=== PATIENT | female | born 1950 | race Caucasian/White ===

== ENCOUNTER 2018-06-16 18:54 | Observation (INO) ==
--- NOTE | 2018-06-16 20:18 | ED ---
HPI General Chief Complaint: Chest Pain Stated Complaint: Chest tightness/SOB Time Seen by Provider: 06/16/18 19:34 Source: patient Mode of arrival: ambulatory Limitations: no limitations History of Present Illness HPI narrative: 67-year-old female presents to the emergency department by private transportation for complaint of chest pain and shortness of breath since Tuesday. Patient states she underwent cataract surgery on Tuesday had anesthesia and felt fatigue since that time also is noted pain with taking deep breath since Tuesday. Patient complains of feeling like something is sitting on her chest since Tuesday. No referred neck jaw back shoulder arm abdominal pain. Patient had no nausea associated with this however was evaluated by GI approximately 2 weeks ago for frequent nausea and is scheduled for gastric emptying study. Patient also underwent surgery on her ears in April. No report of swelling of the upper extremities or lower extremities were no clotting disorder. Patient does have history of hypertension hypertriglyceridemia and diabetes. Blood sugars have reportedly been well controlled. No reported fever chills. Patient here says concerned because of the increased fatigue and feeling like she needs to take a deep breath. No hemoptysis no productive cough. No history of reactive airways disease although states stopped smoking in 1986 and had had bronchitis prior to that. 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 MD complaint: chest pain STEMI Alert: No Onset (ago): day(s) Duration: intermittent Onset: during rest, during exertion and awoke with symptoms Pain location: substernal Severity: moderate Severity scale (1-10): 4 Quality: heaviness Pain radiation: none Relieving factors: nothing Exacerbating factors: nothing Context: recent surgery and other Associated symptoms: dyspnea and other (Fatigue) Treatments prior to arrival chest pain: other (Ibuprofen without relief) Related Data On Oral Contraceptives: No Home Medications Medication Instructions Recorded Confirmed glimepiride 2 mg PO QAM 06/16/18 06/16/18 metformin 1,000 mg PO BID 06/16/18 06/16/18 miglitol [Glyset] 25 mg PO TID 06/16/18 06/16/18 omeprazole 20 mg PO DAILY 06/16/18 06/16/18 Allergies Allergy/AdvReac Type Severity Reaction Status Date / Time azithromycin Allergy Severe Hives Unverified 06/16/18 19:30 cephalexin Allergy Severe Hives Unverified 06/16/18 19:30 penicillin G Allergy Severe Hives Unverified 06/16/18 19:30 lansoprazole AdvReac Mild Itching Unverified 05/10/17 21:00 Penicillin,KEFLEX, ZITHROMAX Allergy Mild Anaphylaxis Uncoded 06/16/18 19:30 Review of Systems ROS: all other systems reviewed are negative PMFSH Medical History Medical History Diabetes (Acute) Surgical History Surgical History Hx of cataract surgery (Acute) Social History Social History Substance History: No History of Abuse Second Hand Smoke Exposure: No Smoking Status: Never smoker How Often Do You Have a Drink Containing Alcohol: Never Recent Travel in [facility] within the Last 8 Weeks: No Recent Out of Country Travel within the Last 8 Weeks: No Immunization History Tetanus Immunization: >5 Years Hx Influenza Vaccine This Season: No Exam Narrative Exam Narrative: GENERAL: Well-nourished, well-developed patient. No apparent distress no respiratory distress animated laughing during exam appears to have no apparent discomfort or dyspnea. SKIN: Focused skin assessment warm/dry. HEAD: Normocephalic. EYES: No scleral icterus. No injection or drainage. NECK: Supple, trachea midline. No JVD or lymphadenopathy. CARDIOVASCULAR: Regular rate and rhythm without murmurs, gallops, or rubs. RESPIRATORY: Breath sounds equal bilaterally. No accessory muscle use. GASTROINTESTINAL: Abdomen soft, non-tender, nondistended. MUSCULOSKELETAL: No cyanosis, or edema. BACK: Nontender without obvious deformity. No CVA tenderness. Course Initial Documented Vital Signs Temperature 97.7 F 06/16/18 19:12 Pulse Rate 65 06/16/18 19:12 Respiratory Rate 18 06/16/18 19:12 Blood Pressure 154/70 H 06/16/18 19:12 Pulse Oximetry 98 06/16/18 19:12 Last Documented Vital Signs Temperature 97.7 F 06/16/18 19:12 Pulse Rate 65 06/16/18 23:36 Respiratory Rate 20 06/16/18 23:36 Blood Pressure 121/59 L 06/16/18 23:36 Pulse Oximetry 93 L 06/16/18 23:36 Medical Decision Making MDM Narrative Medical decision making narrative: 67-year-old female presents to the emergency department for evaluation of chest discomfort heaviness and shortness of breath was feeling of inability to take complete breath since Tuesday. Patient also complains of increasing fatigue and frequent drowsiness sleeping more often than usual. Currently patient rates discomfort for over 10 in intensity with or without activity deep breathing or at rest. Patient placed on security monitor with continuous pulse oximetry IV access obtained specimens collected and sent for resulting EKG performed sinus rhythm with no acute injury pattern or ectopy noted At 10:30 PM patient has no chest pain no shortness of breath patient states the reason she actually came in is that she was having chest pain shortness of breath but she was also feeling funny in the left side of her head and left side of her face and left left-sided vision. Patient had just undergone cataract surgery on Tuesday of the left eye. Patient states that she is more focused on her breathing and shortness of breath when she came into did not mention it but now that she knows everything is fine she just wants to know may be what is wrong and decided that she should by now mentioned that she was having some dizziness and feeling funny and left side of her head and face. No altered mentation no loss of vision no double vision no partial loss of vision no balance disturbance no facial droop no change in speech no difficulty swallowing no neck pain no arm or leg numbness tingling or weakness and no ataxia of gait spouse is at bedside and states he has not noticed any change in her mid facial droop no change in her speech no change in her behavior and has not noticed her to have any obvious functional or behavioral changes and no weakness. Plan is to admit patient to chest pain center per protocol however in view of these new symptoms will obtain CT brain noncontrast NIH SS at this time is 0. Patient reports that something just is not right is aware CT brain noncontrast reveals no acute abnormality chest pressure that she describes has resolved but risk factors include hypertension target hypertriglyceridemia and diabetes patient will be admitted to chest pain center per protocol. Medical Screen Exam Complete: Yes Emergency Medical Condition: Yes Differential Diagnosis Differential Diagnosis: Chest pain, atypical chest pain, ACS, MS, pleurisy, costochondritis, PE, pneumonia, anemia, CHF, electrolyte disturbance, adverse medication reaction, arrhythmia, uncontrolled diabetes Medical Records Medical records reviewed: Yes I reviewed the patient's medical records. 2006 admission for chest pain Lab Data Lab results reviewed: Yes I reviewed the patient's lab results. Result diagrams: 06/16/18 20:00 06/16/18 20:00 Lab Results 06/16/18 06/16/18 06/16/18 Range/Units 20:00 20:00 20:00 WBC 5.4 (4.0-11.0) th/mm3 RBC 4.45 (4.00-5.30) mil/mm3 Hgb 14.0 (11.6-15.3) gm/dL Hct 42.5 (35.0-46.0) % MCV 95.5 (80.0-100.0) fL MCH 31.5 (27.0-34.0) pg MCHC 33.0 (32.0-36.0) % RDW 13.1 (11.6-17.2) % Plt Count 270 (150-450) th/mm3 MPV 7.9 (7.0-11.0) fL Neut % (Auto) 49.0 (16.0-70.0) % Lymph % (Auto) 42.6 (9.0-44.0) % Mora % (Auto) 6.7 (0.0-8.0) % Eos % (Auto) 1.1 (0.0-4.0) % Baso % (Auto) 0.6 (0.0-2.0) % Neut # (Auto) 2.6 (1.8-7.7) th/mm3 Lymph # (Auto) 2.3 (1.0-4.8) th/mm3 Mora # (Auto) 0.4 (0.0-0.9) th/mm3 Eos # (Auto) 0.1 (0.0-0.4) th/mm3 Baso # (Auto) 0.0 (0.0-0.2) th/mm3 WBC Differential . Differential Comment Auto diff final PT (9.8-11.6) sec INR Ratio APTT (24.3-30.1) sec D-Dimer Quant (PE/DVT) (0.00-0.50) mg/L FEU Sodium 143 (136-145) meq/L Potassium 3.7 (3.5-5.1) meq/L Chloride 105 (98-107) meq/L Carbon Dioxide 29.7 (21.0-32.0) meq/L Anion Gap 8 (5-15) meq/L BUN 10 (7-18) mg/dL Creatinine 0.70 (0.50-1.00) mg/dL Estimated GFR 84 L (>89) mL/min Random Glucose 89 (74-106) mg/dL Calcium 8.6 (8.5-10.1) mg/dL Magnesium 1.6 (1.5-2.5) mg/dL Total Bilirubin 0.2 (0.2-1.0) mg/dL AST 16 (15-37) U/L ALT 32 (10-53) U/L Alkaline Phosphatase 92 (45-117) U/L Total Creatine Kinase 83 (26-192) U/L Troponin I Less than 0.02 L (0.02-0.05) ng/mL B-Natriuretic Peptide 17 (0-100) pg/mL Total Protein 6.7 (6.4-8.2) g/dL Albumin 3.6 (3.4-5.0) g/dL Urine Color (Yellw/Straw) Urine Clarity (Clear) Urine pH (5.0-8.5) Ur Specific [place] (1.002-1.035) Urine Protein (Neg-Trace) mg/dL Urine Glucose (UA) (Negative) mg/dL Urine Ketones (Negative) mg/dL Urine Occult Blood (Negative) Urine Nitrate (Negative) Urine Bilirubin (Negative) Urine Urobilinogen (Less than 2) mg/dL Ur Leukocyte Esterase (Negative) Micro UA Comment Ur Microscopic Review Urine Culture Comments 06/16/18 06/16/18 06/16/18 Range/Units 20:00 20:00 20:20 WBC (4.0-11.0) th/mm3 RBC (4.00-5.30) mil/mm3 Hgb (11.6-15.3) gm/dL Hct (35.0-46.0) % MCV (80.0-100.0) fL MCH (27.0-34.0) pg MCHC (32.0-36.0) % RDW (11.6-17.2) % Plt Count (150-450) th/mm3 MPV (7.0-11.0) fL Neut % (Auto) (16.0-70.0) % Lymph % (Auto) (9.0-44.0) % Mora % (Auto) (0.0-8.0) % Eos % (Auto) (0.0-4.0) % Baso % (Auto) (0.0-2.0) % Neut # (Auto) (1.8-7.7) th/mm3 Lymph # (Auto) (1.0-4.8) th/mm3 Mora # (Auto) (0.0-0.9) th/mm3 Eos # (Auto) (0.0-0.4) th/mm3 Baso # (Auto) (0.0-0.2) th/mm3 WBC Differential Differential Comment PT 9.9 (9.8-11.6) sec INR 1.0 Ratio APTT 24.3 (24.3-30.1) sec D-Dimer Quant (PE/DVT) 0.20 (0.00-0.50) mg/L FEU Sodium (136-145) meq/L Potassium (3.5-5.1) meq/L Chloride (98-107) meq/L Carbon Dioxide (21.0-32.0) meq/L Anion Gap (5-15) meq/L BUN (7-18) mg/dL Creatinine (0.50-1.00) mg/dL Estimated GFR (>89) mL/min Random Glucose (74-106) mg/dL Calcium (8.5-10.1) mg/dL Magnesium (1.5-2.5) mg/dL Total Bilirubin (0.2-1.0) mg/dL AST (15-37) U/L ALT (10-53) U/L Alkaline Phosphatase (45-117) U/L Total Creatine Kinase (26-192) U/L Troponin I (0.02-0.05) ng/mL B-Natriuretic Peptide (0-100) pg/mL Total Protein (6.4-8.2) g/dL Albumin (3.4-5.0) g/dL Urine Color Yellow (Yellw/Straw) Urine Clarity Clear (Clear) Urine pH 6.0 (5.0-8.5) Ur Specific [place] 1.013 (1.002-1.035) Urine Protein Negative (Neg-Trace) mg/dL Urine Glucose (UA) Negative (Negative) mg/dL Urine Ketones Negative (Negative) mg/dL Urine Occult Blood Negative (Negative) Urine Nitrate Negative (Negative) Urine Bilirubin Negative (Negative) Urine Urobilinogen Less than 2 (Less than 2) mg/dL Ur Leukocyte Esterase Negative (Negative) Micro UA Comment Culture not ind Ur Microscopic Review Not Reportable Urine Culture Comments Culture not ind 06/16/18 Range/Units 23:23 WBC (4.0-11.0) th/mm3 RBC (4.00-5.30) mil/mm3 Hgb (11.6-15.3) gm/dL Hct (35.0-46.0) % MCV (80.0-100.0) fL MCH (27.0-34.0) pg MCHC (32.0-36.0) % RDW (11.6-17.2) % Plt Count (150-450) th/mm3 MPV (7.0-11.0) fL Neut % (Auto) (16.0-70.0) % Lymph % (Auto) (9.0-44.0) % Mora % (Auto) (0.0-8.0) % Eos % (Auto) (0.0-4.0) % Baso % (Auto) (0.0-2.0) % Neut # (Auto) (1.8-7.7) th/mm3 Lymph # (Auto) (1.0-4.8) th/mm3 Mora # (Auto) (0.0-0.9) th/mm3 Eos # (Auto) (0.0-0.4) th/mm3 Baso # (Auto) (0.0-0.2) th/mm3 WBC Differential Differential Comment PT (9.8-11.6) sec INR Ratio APTT (24.3-30.1) sec D-Dimer Quant (PE/DVT) (0.00-0.50) mg/L FEU Sodium (136-145) meq/L Potassium (3.5-5.1) meq/L Chloride (98-107) meq/L Carbon Dioxide (21.0-32.0) meq/L Anion Gap (5-15) meq/L BUN (7-18) mg/dL Creatinine (0.50-1.00) mg/dL Estimated GFR (>89) mL/min Random Glucose (74-106) mg/dL Calcium (8.5-10.1) mg/dL Magnesium (1.5-2.5) mg/dL Total Bilirubin (0.2-1.0) mg/dL AST (15-37) U/L ALT (10-53) U/L Alkaline Phosphatase (45-117) U/L Total Creatine Kinase 59 (26-192) U/L Troponin I Less than 0.02 L (0.02-0.05) ng/mL B-Natriuretic Peptide (0-100) pg/mL Total Protein (6.4-8.2) g/dL Albumin (3.4-5.0) g/dL Urine Color (Yellw/Straw) Urine Clarity (Clear) Urine pH (5.0-8.5) Ur Specific [place] (1.002-1.035) Urine Protein (Neg-Trace) mg/dL Urine Glucose (UA) (Negative) mg/dL Urine Ketones (Negative) mg/dL Urine Occult Blood (Negative) Urine Nitrate (Negative) Urine Bilirubin (Negative) Urine Urobilinogen (Less than 2) mg/dL Ur Leukocyte Esterase (Negative) Micro UA Comment Ur Microscopic Review Urine Culture Comments Imaging Data Radiologist's impression: Chest X-Ray 06/16/18 19:34 CONCLUSION: No acute findings. Head CT 06/16/18 22:31 CONCLUSION: 1. No acute intracranial abnormality. 2. Apparent previous left mastoid surgery. . ECG Data EKG Prior to Arrival: No Attestation: I personally reviewed and interpreted this ECG as follows: Prior ECG tracings: not available for review Interpretation: EKG: Normal sinus rhythm rate [address] elevation injury pattern or ectopy noted normal axis and interval Discharge Plan Discharge Disposition Patient Disposition: 30 Still Patient Discharge Condition Condition: Stable Discharge Details Diagnosis: Chest pain Physicians Team ED Provider: Kirsty Bob Primary Care Provider: UNKNOWN, Rxs /Orders / Referrals /Forms Prescriptions: No Action miglitol [Glyset] 25 mg Tablet 25 mg PO TID RF: 0 glimepiride 2 mg Tablet 2 mg PO QAM RF: 0 omeprazole 20 mg Capsule,Delayed Release(Dr/Ec) 20 mg PO DAILY RF: 0 metformin 1,000 mg Tablet Extended Release 24hr 1,000 mg PO BID RF: 0 Discharge Instructions Patient Printed Instructions: Chest Pain (ED) Status ED Status: With Doctor
[2018-06-16 20:26] LABS: Baso % (Auto) 0.6 % (0.0-2.0); Eos # (Auto) 0.1 th/mm3 (0.0-0.4); Eos % (Auto) 1.1 % (0.0-4.0); Hematocrit 42.5 % (35.0-46.0); Lymph # (Auto) 2.3 th/mm3 (1.0-4.8); Lymph % (Auto) 42.6 % (9.0-44.0); Mean Corpuscular Hemoglobin 31.5 pg (27.0-34.0); Mean Corpuscular Volume 95.5 fL (80.0-100.0); Mean Platelet Volume 7.9 fL (7.0-11.0); Mono # (Auto) 0.4 th/mm3 (0.0-0.9); Mono % (Auto) 6.7 % (0.0-8.0); Neut # (Auto) 2.6 th/mm3 (1.8-7.7); Platelet Count 270 th/mm3 (150-450); Red Blood Count 4.45 mil/mm3 (4.00-5.30); Red Cell Distribution Width 13.1 % (11.6-17.2); White Blood Count 5.4 th/mm3 (4.0-11.0)
[2018-06-16 20:41] LABS: Activated Partial Thrombo Time 24.3 sec (24.3-30.1); Prothrombin Time 9.9 sec (9.8-11.6)
--- NOTE | 2018-06-16 20:42 | XR ---
EXAM DATE: 06/16/2018 8:20 PM EDT AGE/SEX: 67 years / Female INDICATIONS: Chest pain. CLINICAL DATA: This is the patient's initial encounter. Patient reports that signs and symptoms have been present for 1 day and indicates a pain score of 2/10. MEDICAL/SURGICAL HISTORY: None. None. COMPARISON: No prior exams available for comparison. FINDINGS: A single AP view of the chest demonstrates the lungs to be symmetrically aerated without evidence of mass, infiltrate or effusion. The cardiomediastinal contours are unremarkable. Osseous structures a re intact. CONCLUSION: No acute findings. Electronically signed by: Milo Zhang MD 06/16/2018 8:41 PM EDT
[2018-06-16 20:43] LABS: Bilirubin,Urine Negative (Negative); Clarity,Urine Clear (Clear); Color,Urine Yellow (Yellw/Straw); Glucose,Urine (UA) Negative (Negative); Leukocyte Esterase,Urine Negative (Negative); Nitrite,Urine Negative (Negative); Specific Gravity,Urine 1.013 (1.002-1.035)
[2018-06-16 20:57] LABS: Albumin 3.6 g/dL (3.4-5.0); Anion Gap 8 meq/L (5-15); Aspartate Aminotransferase 16 U/L (15-37); Blood Urea Nitrogen 10 mg/dL (7-18); Calcium 8.6 mg/dL (8.5-10.1); Carbon Dioxide 29.7 meq/L (21.0-32.0); Chloride 105 meq/L (98-107); Glomerular Filtration Rate 84 mL/min (>89); Glucose,Random 89 mg/dL (74-106); Magnesium 1.6 mg/dL (1.5-2.5); Potassium 3.7 meq/L (3.5-5.1); Sodium 143 meq/L (136-145)
[2018-06-16 21:02] LABS: Alanine Aminotransferase 32 U/L (10-53); Alkaline Phosphatase 92 U/L (45-117); Total Protein 6.7 g/dL (6.4-8.2)
[2018-06-16 21:04] LABS: Creatine Kinase 83 U/L (26-192)
--- NOTE | 2018-06-16 23:47 | CT ---
EXAM DATE: 06/16/2018 11:34 PM EDT AGE/SEX: 67 years / Female INDICATIONS: Cephalgia, generalized weakness since cataract surgery on Tuesday. CLINICAL DATA: This is the patient's initial encounter. Patient reports that signs and symptoms have been present for 4 - 6 days and indicates a pain score of 4/10. MEDICAL/SURGICAL HISTORY: Diabetes. . Cataract surgery. RADIATION DOSE: 56.35 CTDI (mGy) COMPARISON: . TECHNIQUE: CT of the head without contrast. Using automated exposure control and adjustment of the mA and/or kV according to patient size, radiation dose was kept as low as reasonably achievable to ob tain optimal diagnostic quality images. DICOM format image data is available electronically for revi ew and comparison. FINDINGS: Cerebrum: The ventricles are normal for age. No evidence of midline shift, mass lesion, hemorrhage or acute infarction. No extraaxial fluid collections are seen. Posterior Fossa: The cerebellum and brainstem are intact. The 4th ventricle is midline. The cerebe llopontine angle is unremarkable. Extracranial: Visualized paranasal sinuses and right mastoid air cells are clear. Apparent previous surgery of the left mastoid bone. Skull: The calvaria is intact. No evidence of skull fracture. CONCLUSION: 1. No acute intracranial abnormality. 2. Apparent previous left mastoid surgery. . Electronically signed by: Willis Arechiga MD 06/16/2018 11:45 PM EDT
[2018-06-17 00:06] LABS: Creatine Kinase 59 U/L (26-192)
[2018-06-17 02:56] VITALS: PULSE 64; RESP 18
[2018-06-17 03:50] LABS: Creatine Kinase 61 U/L (26-192)
[2018-06-17 07:25] VITALS: BP 110/56; TEMP 98.9; O2SAT 94
--- NOTE | 2018-06-17 08:46 | P.HPCA ---
History of Present Illness Primary Care Physician: PCP located [place], [place] Chief Complaint: Chest pain History of Present Illness: 67-year-old female with history of type 2 diabetes, GERD, and recent cataract surgery presents emergency room for further evaluation of fatigue and chest pressure. Surgery on left cataract Tuesday morning. Since Tuesday she continues to feel fatigued. morning noticed substernal chest pressure. Characterized as someone sitting on her chest. Initially hurt to take a deep breath, though this sensation has now resolved. Duration constant. No associated symptoms of nausea, vomiting, diaphoresis, or dyspnea. No precipitating or relieving factors. Denies similar pain in the past. Endorses she follows with Dr. Moreno verifier. No known coronary artery disease. Follows with verifier due to long-standing diabetes history. She presents with her medical records, nuclear ETT completed October 25, 2017 felt to be nonischemic and ambulated 10:03 minutes. Also concerned with left side of head "feels weird." Difficult for her to describe. Onset Tuesday. She called her PCP office yesterday with above symptoms and was directed to ER for further evaluation. No recent fever or chills. Past cardiac testing Remote cardiac catheterization approximately 10 years ago reported to be normal. 09/28/2017 Nuclear ett-ambulated 10:03, non ischemic 09/27/2017 echocardiogram-unremarkable Social history Known diabetic for 18 years. Denies hypertension. Known hyperlipidemia, reports statin intolerant after multiple statins tried. Recently prescribed fenofibrate. Lifelong non-smoker. Denies any alcohol or recreational drug use. . Endorses an sedentary lifestyle. Live in [facility] she [facility]. - Diagnosis (1) Atypical chest pain Review of Systems All other systems reviewed negative except as stated in HPI PMFSH - History History Provided By: Patient - Medical History Medical History: Medical History (Last Updated 06/17/18 @ 12:16 by DANA Yarbrough) Diabetes Hyperlipidemia - Surgical History Surgical History: Surgical History (Last Reviewed 06/17/18 @ 12:16 by DANA Yarbrough) Hx of cataract surgery - Social History I have reviewed the patient's Social History: Yes - Tobacco History Second Hand Smoke Exposure: No Smoking Status: Never smoker - Alcohol History How Often Do You Have a Drink Containing Alcohol: Never - Substance Use History Substance History: No History of Abuse - Travel History Recent Travel in the [place] Within the Last 8 Weeks: No Recent Travel Out of the Country Within the Last 8 Weeks: No - Immunization History Tetanus Immunization: >5 Years Hx Influenza Vaccine This Season: No Medications and Allergies Active Medications: Active Medications Aspirin (Aspirin) 325 mg PO DAILY ANGEL Nitroglycerin (Nitrostat Sl) 0.4 mg SL Q5M PRN PRN Reason: CHEST PAIN Sodium Chloride (Ns Flush) 2 ml IV.FLUSH UNSCH PRN PRN Reason: FLUSH AFTER USING IV ACCESS Sodium Chloride (Ns Flush) 2 ml IV.FLUSH BID ANGEL Sodium Chloride (Ns Flush) 2 ml IV.FLUSH PRN PRN PRN Reason: FLUSH AFTER USING IV ACCESS Allergies Allergy/AdvReac Type Severity Reaction Status Date / Time azithromycin Allergy Severe Hives Unverified 06/16/18 19:30 cephalexin Allergy Severe Hives Unverified 06/16/18 19:30 penicillin G Allergy Severe Hives Unverified 06/16/18 19:30 lansoprazole AdvReac Mild Itching Unverified 05/10/17 21:00 Penicillin,KEFLEX, ZITHROMAX Allergy Mild Anaphylaxis Uncoded 06/16/18 19:30 Home Medications Medication Instructions Recorded Confirmed Type glimepiride 2 mg PO QAM 06/16/18 06/16/18 History metformin 1,000 mg PO BID 06/16/18 06/16/18 History miglitol [Glyset] 25 mg PO TID 06/16/18 06/16/18 History omeprazole 20 mg PO DAILY 06/16/18 06/16/18 History Exam Vital signs: Vital Signs 06/16/18 19:12 06/16/18 19:25 06/16/18 20:18 Temperature 97.7 F Pulse Rate 65 72 Respiratory Rate 18 13 20 Blood Pressure 154/70 H 189/92 H Blood Pressure [Left Arm] 135/73 Blood Pressure [Right Arm] 134/76 Pulse Oximetry 98 98 97 06/16/18 23:36 06/17/18 02:53 06/17/18 07:23 Temperature 98.4 F 98.9 F Pulse Rate 65 64 64 Respiratory Rate 20 18 18 Blood Pressure 121/59 L 117/55 L 110/56 L Blood Pressure [Left Arm] Blood Pressure [Right Arm] Pulse Oximetry 93 L 95 94 L Intake & Output 06/16/18 06/17/18 06/17/18 18:59 06:59 18:59 Weight 84.822 kg Other: Date of Last Bowel Movement 06/16/18 Weight On Admission 84.82 kg Narrative: GENERAL: Alert WN, WD, NAD, pleasant, obese, female HEAD: NC, AT EYES: Sclera clear, conjunctiva without injection, pupils equal and round ENT: Mucous membranes pink and moist NECK: Supple, no masses, trachea midline CV: RRR, without murmur, rub, gallop. S1-S2. No carotid bruits. Chest wall nontender to palpation RESP: Clear lungs throughout bilateral, no crackles, wheeze, rhonchi, symmetrical chest rise, nonlabored, able to speak in full sentences ABD: Soft, NT, ND, no masses, positive bowel tones EXT: Pulses +2x4, trace dependent edema MS: Normal tone x4 extremities, nontender, no obvious deformities, full range of motion NEURO: CN II through CN XII grossly intact, motor strength 5/5 PSYCH: A+O x3, pleasant affect, appropriate speech, appropriate mood, insight and judgment SKIN: Normal turgor, normal texture, no lesions, no rashes, brisk cap refill, even hair distribution Results 06/16/18 20:00 06/16/18 20:00 Cardiac Enzymes 06/16/18 06/16/18 06/16/18 Range/Units 20:00 20:00 23:23 AST 16 (15-37) U/L Troponin I Less than 0.02 L Less than 0.02 L (0.02-0.05) ng/mL B-Natriuretic Peptide 17 (0-100) pg/mL 06/17/18 Range/Units 03:00 AST (15-37) U/L Troponin I Less than 0.02 L (0.02-0.05) ng/mL B-Natriuretic Peptide (0-100) pg/mL Coagulation 06/16/18 06/16/18 Range/Units 20:00 20:00 PT 9.9 (9.8-11.6) sec APTT 24.3 (24.3-30.1) sec B-Natriuretic Peptide 17 (0-100) pg/mL CBC 06/16/18 Range/Units 20:00 WBC 5.4 (4.0-11.0) th/mm3 RBC 4.45 (4.00-5.30) mil/mm3 Hgb 14.0 (11.6-15.3) gm/dL Hct 42.5 (35.0-46.0) % Plt Count 270 (150-450) th/mm3 Neut # (Auto) 2.6 (1.8-7.7) th/mm3 Lymph # (Auto) 2.3 (1.0-4.8) th/mm3 [place] # (Auto) 0.4 (0.0-0.9) th/mm3 Eos # (Auto) 0.1 (0.0-0.4) th/mm3 Baso # (Auto) 0.0 (0.0-0.2) th/mm3 Comprehensive Metabolic Panel 06/16/18 Range/Units 20:00 Sodium 143 (136-145) meq/L Potassium 3.7 (3.5-5.1) meq/L Chloride 105 (98-107) meq/L Carbon Dioxide 29.7 (21.0-32.0) meq/L BUN 10 (7-18) mg/dL Creatinine 0.70 (0.50-1.00) mg/dL Calcium 8.6 (8.5-10.1) mg/dL AST 16 (15-37) U/L ALT 32 (10-53) U/L Alkaline Phosphatase 92 (45-117) U/L Total Protein 6.7 (6.4-8.2) g/dL Albumin 3.6 (3.4-5.0) g/dL Intake and Output 06/16/18 06/17/18 06/17/18 22:59 06:59 14:59 Other: Date of Last Bowel Movement 06/16/18 Weight 84.822 kg 84.822 kg Weight On Admission 84.82 kg - Imaging and Cardiology Imaging: Impressions Chest X-Ray 06/16/18 19:34 CONCLUSION: No acute findings. Head CT 06/16/18 22:31 CONCLUSION: 1. No acute intracranial abnormality. 2. Apparent previous left mastoid surgery. . EKG interpretations - EKG EKG results cardiology: sinus rhythm, normal axis (NSR, nonspecific st t seg changes, compared with Pt's personal medical records unchanged) Caprini VTE Risk Assessment Caprini VTE Risk Assessment: Moderate/High Risk (score >= 2) Caprini Risk Assessment Model: Point Value = 1 Point Value = 2 Point Value = 3 Point Value = 5 Age 41-60 Minor surgery BMI > 25 kg/m2 Swollen legs Varicose veins or History of unexplained or recurrent spontaneous Oral contraceptives or hormone replacement Sepsis (< 1 month) Serious lung disease, including pneumonia (< 1 month) Abnormal pulmonary function Acute myocardial infarction Congestive heart failure (< 1 month) History of inflammatory bowel disease Medical patient at bed rest Age 61-74 Arthroscopic surgery Major open surgery (> 45 min) Laparoscopic surgery (> 45 min) Malignancy Confined to bed (> 72 hours) Immobilizing plaster cast Central venous access Age >= 75 History of VTE Family history of VTE Factor V Leiden Prothrombin [id number] Lupus anticoagulant Anticardiolipin antibodies Elevated serum homocysteine Heparin-induced thrombocytopenia Other congenital or acquired thrombophilia Stroke (< 1 month) Elective arthroplasty Hip, pelvis, or leg fracture Acute spinal cord injury (< 1 month) Prophylaxis Regimen: Total Risk Factor Score Risk Level Prophylaxis Regimen 0-1 Low Early ambulation 2 Moderate Order ONE of the following: *Sequential Compression Device (SCD) *Heparin 5000 units SQ BID 3-4 Higher Order ONE of the following medications: *Heparin 5000 units SQ TID *Enoxaparin/Lovenox 40 mg SQ daily (WT < 150 kg, CrCl > 30 mL/min) *Enoxaparin/Lovenox 30 mg SQ daily (WT < 150 kg, CrCl > 10-29 mL/min) *Enoxaparin/Lovenox 30 mg SQ BID (WT < 150 kg, CrCl > 30 mL/min) AND/OR *Sequential Compression Device (SCD) 5 or more Highest Order ONE of the following medications: *Heparin 5000 units SQ TID (Preferred with Epidurals) *Enoxaparin/Lovenox 40 mg SQ daily (WT < 150 kg, CrCl > 30 mL/min) *Enoxaparin/Lovenox 30 mg SQ daily (WT < 150 kg, CrCl > 10-29 mL/min) *Enoxaparin/Lovenox 30 mg SQ BID (WT < 150 kg, CrCl > 30 mL/min) AND *Sequential Compression Device (SCD) Assessment and Plan - Assessment (1) Atypical chest pain Code(s): R07.89 - Other chest pain Status: Acute Plan: Admitted chest pain center. ACS ruled out 3 sets of EKGs and cardiac enzymes. Seen and evaluated by Dr. Burt Romero. No further cardiac testing required. Recent nuclear ETT completed September of this year, also discomfort atypical for cardiac presentation. Plans to discharge patient home this morning. Instructed to follow up with PCP and eye MD next week. H&P: Quality - VTE Deep Vein Thrombosis/Pulmonary Embolism Present on Admission: No
[2018-06-17] MEDS ORDERED: Aspirin 325 MG Tablet PO SCH (09:00)
--- NOTE | 2018-06-17 10:34 | ECG ---
Date Performed: 06/17/2018 Time Performed: 03:11:09 PTAGE: 67 years EKG: ECTOPIC ATRIAL RHYTHM POSSIBLE RIGHT VENTRICULAR HYPERTROPHY NONSPECIFIC T-WAVE ABNORMALITY ABNORMAL ECG No significant change but clinical correlation is recommended PREVIOUS TRACING : 06/16/2018 19.28 DOCTOR: Burt Romero Interpretating Date/Time 06/17/2018 10:32:59
--- NOTE | 2018-06-17 10:49 | P.PNCA ---
Subjective Interval history: Very pleasant 67-year-old patient presenting from the [facility]. She was evaluated and presented by the nurse practitioner. Pertinent history includes cataract removal of the left eye earlier this week. When she awakened from anesthesia she had a sense of extreme fatigue lethargy and subsequently a sense of discomfort in her chest and a funny numb feeling over her entire left face. Pertinent to note that she is been followed in the past by Dr. Moreno and has a documented negative catheterization and negative nuclear study in September of this year. Her chest pain is extremely atypical for ischemic issues and taken with her general sense of lethargy postanesthesia is highly unlikely to be ischemic heart disease in nature. She has ruled out using standard chest pain center protocol and after discussion we will discharge her back to her primary care and surgery aide in the [place] area. She will return to [facility] if she has any further difficulties. Medications and Allergies Active Medications: Active Medications Aspirin (Aspirin) 325 mg PO DAILY ANGEL Nitroglycerin (Nitrostat Sl) 0.4 mg SL Q5M PRN PRN Reason: CHEST PAIN Sodium Chloride (Ns Flush) 2 ml IV.FLUSH UNSCH PRN PRN Reason: FLUSH AFTER USING IV ACCESS Sodium Chloride (Ns Flush) 2 ml IV.FLUSH BID ANGEL Sodium Chloride (Ns Flush) 2 ml IV.FLUSH PRN PRN PRN Reason: FLUSH AFTER USING IV ACCESS Allergies Allergy/AdvReac Type Severity Reaction Status Date / Time azithromycin Allergy Severe Hives Unverified 06/16/18 19:30 cephalexin Allergy Severe Hives Unverified 06/16/18 19:30 penicillin G Allergy Severe Hives Unverified 06/16/18 19:30 lansoprazole AdvReac Mild Itching Unverified 05/10/17 21:00 Penicillin,KEFLEX, ZITHROMAX Allergy Mild Anaphylaxis Uncoded 06/16/18 19:30 Home Medications Medication Instructions Recorded Confirmed Type glimepiride 2 mg PO QAM 06/16/18 06/16/18 History metformin 1,000 mg PO BID 06/16/18 06/16/18 History miglitol [Glyset] 25 mg PO TID 06/16/18 06/16/18 History omeprazole 20 mg PO DAILY 06/16/18 06/16/18 History Physical Exam Vital signs: Vital Signs 06/16/18 19:12 06/16/18 19:25 06/16/18 20:18 Temperature 97.7 F Pulse Rate 65 72 Respiratory Rate 18 13 20 Blood Pressure 154/70 H 189/92 H Blood Pressure [Left Arm] 135/73 Blood Pressure [Right Arm] 134/76 Pulse Oximetry 98 98 97 06/16/18 23:36 06/17/18 02:53 06/17/18 07:23 Temperature 98.4 F 98.9 F Pulse Rate 65 64 64 Respiratory Rate 20 18 18 Blood Pressure 121/59 L 117/55 L 110/56 L Blood Pressure [Left Arm] Blood Pressure [Right Arm] Pulse Oximetry 93 L 95 94 L 06/17/18 08:00 Temperature Pulse Rate 64 Respiratory Rate Blood Pressure Blood Pressure [Left Arm] Blood Pressure [Right Arm] Pulse Oximetry 94 L Intake & Output 06/16/18 06/17/18 06/17/18 18:59 06:59 18:59 Weight 84.822 kg Other: Date of Last Bowel Movement 06/16/18 06/16/18 Weight On Admission 84.82 kg Narrative: After personal examination I am in agreement with the documentation with the single edition of neurologic evaluation Neurologic: Evaluation of cranial nerve shows break in fusion in the left lateral superior gaze most likely related to her recent cataract replacement. Remaining facial nerves are intact. Motor strength is equal and strong in extremities. Finger to nose is mildly impaired due to depth perception from her cataract surgery but basically intact. In short there is no evidence of neurologic deficit to suggest TIA or stroke Results 06/16/18 20:00 06/16/18 20:00 Cardiac Enzymes 06/16/18 06/16/18 06/16/18 Range/Units 20:00 20:00 23:23 AST 16 (15-37) U/L Troponin I Less than 0.02 L Less than 0.02 L (0.02-0.05) ng/mL B-Natriuretic Peptide 17 (0-100) pg/mL 06/17/18 Range/Units 03:00 AST (15-37) U/L Troponin I Less than 0.02 L (0.02-0.05) ng/mL B-Natriuretic Peptide (0-100) pg/mL Coagulation 06/16/18 06/16/18 Range/Units 20:00 20:00 PT 9.9 (9.8-11.6) sec APTT 24.3 (24.3-30.1) sec B-Natriuretic Peptide 17 (0-100) pg/mL CBC 06/16/18 Range/Units 20:00 WBC 5.4 (4.0-11.0) th/mm3 RBC 4.45 (4.00-5.30) mil/mm3 Hgb 14.0 (11.6-15.3) gm/dL Hct 42.5 (35.0-46.0) % Plt Count 270 (150-450) th/mm3 Neut # (Auto) 2.6 (1.8-7.7) th/mm3 Lymph # (Auto) 2.3 (1.0-4.8) th/mm3 [place] # (Auto) 0.4 (0.0-0.9) th/mm3 Eos # (Auto) 0.1 (0.0-0.4) th/mm3 Baso # (Auto) 0.0 (0.0-0.2) th/mm3 Comprehensive Metabolic Panel 06/16/18 Range/Units 20:00 Sodium 143 (136-145) meq/L Potassium 3.7 (3.5-5.1) meq/L Chloride 105 (98-107) meq/L Carbon Dioxide 29.7 (21.0-32.0) meq/L BUN 10 (7-18) mg/dL Creatinine 0.70 (0.50-1.00) mg/dL Calcium 8.6 (8.5-10.1) mg/dL AST 16 (15-37) U/L ALT 32 (10-53) U/L Alkaline Phosphatase 92 (45-117) U/L Total Protein 6.7 (6.4-8.2) g/dL Albumin 3.6 (3.4-5.0) g/dL Intake and Output 06/16/18 06/17/18 06/17/18 22:59 06:59 14:59 Other: Date of Last Bowel Movement 06/16/18 06/16/18 Weight 84.822 kg 84.822 kg Weight On Admission 84.82 kg - Imaging and Cardiology Imaging: Impressions Chest X-Ray 06/16/18 19:34 CONCLUSION: No acute findings. Head CT 06/16/18 22:31 CONCLUSION: 1. No acute intracranial abnormality. 2. Apparent previous left mastoid surgery. . Assessment and Plan - Plan After full discussion with the nurse practitioner with the knowledge that the patient has had very thorough negative cardiac evaluation within the last year and atypical presentation for further evaluation at this time will not be carried out. She has ruled out she is clinically stable and will be allowed to return for further evaluation by her primary care physician and surgery aide.
--- NOTE | 2018-06-18 09:38 | ECG ---
Date Performed: 06/16/2018 Time Performed: 19:28:55 PTAGE: 67 years EKG: Sinus rhythm NORMAL ECG PREVIOUS TRACING : 03/27/2006 10.00 DOCTOR: Burt Romero Interpretating Date/Time 06/18/2018 09:37:10
== END 2018-06-17 12:17 | disposition home or self-care (01) ==
LOC: NEDA 18:54 → NEPC 18:54 → NEPFCDU 06-17 02:46
PROVIDERS: ADMIT Internal Medicine Cardiovascular Disease; ATTEND Internal Medicine Cardiovascular Disease